=== PATIENT | female | born 1980 | race Caucasian/White ===

== ENCOUNTER 2016-09-05 12:18 | Emergency (ER) | payer OTHER | END 2016-09-05 15:56 | disposition other institution (70) | LOC: ER 12:18 | DX: M54.5 Low back pain (principal); G89.21 Chronic pain due to trauma; Z86.718 Personal history of other venous thrombosis and embolism | CPT/HCPCS: 99282 ==

== ENCOUNTER 2016-09-08 12:11 | Emergency (ER) | payer OTHER, SELFPAY ==
[2016-09-08 12:59] LABS: BASO % 0.5 % (0.1-1.2); EOS # 0.3 10_X3_uL (0.0-0.4); EOS % 5.5 % (0.7-5.8); GRAN # 3.2 10_X3_uL (1.6-6.1); GRAN % 57.8 % (34.0-71.1); HEMATOCRIT 39.1 % (34-45); HEMOGLOBIN 13.2 g/dL (11.2-15.7); LYMPH # 1.7 10_X3_uL (1.2-3.7); LYMPH % 29.6 % (19.3-51.7); MEAN CORPUSCULAR HEMOGLOBIN 29.9 pg (27.0-33.0); MEAN CORPUSCULAR HGB CONC 33.8 g/dL (32.0-36.0); MEAN CORPUSCULAR VOLUME 88.7 fL (79-95); MEAN PLATELET VOLUME 10.4 fl (7.5-11.5); MONO # 0.4 10_X3_uL (0.2-0.9); MONO % 6.6 % (4.7-12.5); PLATELET COUNT 309 x10_3/uL (182-369); RED BLOOD COUNT 4.41 x10_6/uL (3.9-5.2); RED CELL DISTRIBUTION WIDTH 12.7 % (11.7-14.4); WHITE BLOOD COUNT 5.6 x10_3/uL (4.0-10.0)
== END 2016-09-08 13:35 | disposition home or self-care (01) ==
LOC: ER 12:11
PROVIDERS: Internal Medicine
DX: N93.8 Other specified abnormal uterine and vaginal bleeding (principal); R11.10 Vomiting, unspecified
CPT/HCPCS: 36415; 85025; 99283; J8597